=== PATIENT | female | born 1990 | race African-American/Black ===

== ENCOUNTER 2017-07-12 09:07 | Emergency (ER) | payer OTHER ==
[~2017-07-12] VITALS: Ht 162.6 cm; Wt 50.8 kg
[~2017-07-12 09:07] MED LIST: ACETAMINOPHEN-1 EAC1 ORAL; BACTRIM DS TAB1 EAC1 ORAL; CEPHALEXIN500 MG ORAL; IBUPROFEN600 MG ORAL; NKM; PENICILLIN V P500 MG PO; PREDNISONE20 MG ORAL
[2017-07-12 09:38] VITALS: BP 113/75
--- NOTE | 2017-07-12 09:47 | Emergency Room Report ---
History of Present Illness General Chief Complaint: Back Pain-No Injury Source: Patient Present Illness HPI The patient presents with right shoulder and upper back pain. This for several days. She's been lifting her child with right hand. There has been no fever, cough, nausea, vomiting, diarrhea, dysuria. She is due for her period in the next 2 days. She doesn't think she's . The pain is rated 7/10, constant and worse with movement, aching. No meds taken. No calf tenderness or edema. No dyspnea. She fractured her right collarbone year ago and believes that this might be related to that. She had nephrolithiasis and pyelonephritis in the past. This pain is different - higher up. Allergies: Coded Allergies: No Known Allergies (Unverified , 11/16/14) Patient History Past Medical History: see triage record, old chart reviewed Social History: Denies: smoking Social History Narrative here with son (Demarco) Last Menstrual Period: Jun 13 Now: No Reviewed Nursing Documentation: PMH: Agreed, PSxH: Agreed Nursing Documentation-PMH Past Medical History: No Stated History Review of Systems All Other Systems: negative except mentioned in HPI Physical Exam Vital Signs Date Time Temp Pulse Resp B/P (MAP) Pulse Ox O2 Delivery O2 Flow Rate FiO2 07/12/17 09:17 97.9 102 18 113/75 100 Room Air Sp02 EP Interpretation: reviewed, normal General Appearance: well appearing, no apparent distress, GCS 15 Head: normocephalic Eyes: bilateral eye normal inspection, bilateral eye PERRL, bilateral eye EOMI ENT: moist mucus membranes Neck: supple Respiratory: lungs clear, normal breath sounds, other - R upper back pain, muscle tenderness and some spasm R Cardiovascular #1: regular rate, rhythm Cardiovascular #2: 2+ radial (R) Gastrointestinal: normal inspection, normal bowel sounds, non tender, no mass, non-distended Genitourinary: no CVA tenderness Musculoskeletal: back normal - see chest, gait/station normal, normal range of motion Neurologic: alert, oriented x3, motor strength/tone normal, grossly normal Psychiatric: mood/affect normal Skin: normal inspection, warm/dry Medical Decision Making Diagnostic Impression: Primary Impression: Muscle spasm ER Course Patient presents with R upper back pain. Ddx; strain, spasm, UTI, pyelo, stone amongst others. Based on hx and VS, doubt PE. Evaluation with UA. Imaging not indicated. Prior CTs reviewed. Treatment with po Motrin. Labs significant for UA suggestive of menstruation (doubt UTI, pyelo or stone). There is some improvement, but still with pain. Discussed findings with patient. Still with pain and tramadol given. Patient advised of need for follow up. Patient stable for outpatient observation and treatment. Laboratory Tests Test 07/12/17 10:00 Urine Color Yellow Urine Appearance Slightly cloudy Urine pH 6.5 (4.5-8.0) Urine Specific [place] 1.015 (1.005-1.035) Urine Protein 1+ (NEGATIVE) H Urine Glucose (UA) Negative (NEGATIVE) Urine Ketones Negative (NEGATIVE) Urine Occult Blood 5+ (NEGATIVE) H Urine Nitrite Negative (NEGATIVE) Urine Bilirubin Negative (NEGATIVE) Urine Urobilinogen 1 MG/DL (0.0-1.0) H Urine Leukocyte Esterase 1+ (NEGATIVE) H Urine RBC Tntc /HPF (0 - 2) H Urine WBC 5-10 /HPF (0 - 2) H Urine Squamous Epithelial Cells Many /LPF (NONE/OCC) H Urine Bacteria Few /HPF (NONE) Urine Mucus Moderate /LPF (NONE/OCC) H Urine HCG, Qualitative Negative Last Vital Signs Date Time Temp Pulse Resp B/P (MAP) Pulse Ox O2 Delivery O2 Flow Rate FiO2 07/12/17 12:05 97.9 18 107/76 100 Room Air 07/12/17 09:17 102 Status: improved Disposition: HOME, SELF-CARE Condition: Improved Scripts Methocarbamol* (ROBAXIN*) 500 Mg Tablet 500 MG PO TID, #10 TAB 0 Refills Prov: Bryan Sanchez M.D. 07/12/17 Tramadol Hcl* (ULTRAM*) 50 Mg Tablet 50 MG ORAL Q6H Y for For Pain, #6 TAB 0 Refills Prov: Bryan Sanchez M.D. 07/12/17 Ibuprofen* (MOTRIN*) 600 Mg Tablet 600 MG ORAL Q6H Y for For Pain, #20 TAB Prov: Bryan Sanchez M.D. 07/12/17 Bryan Sanchez M.D. Jul 12, 2017 09:47
[2017-07-12 10:33] LABS: APPEARANCE,URINE SLIGHTLY CLOUDY; KETONES,URINE NEGATIVE (NEGATIVE); LEUKOCYTE ESTERASE ,URINE 1+ (NEGATIVE); NITRITE,URINE NEGATIVE (NEGATIVE); PH,URINE 6.5 (4.5-8.0); PROTEIN,URINE 1+ (NEGATIVE); UROBILINOGEN,URINE 1 MG/DL (0.0-1.0)
[2017-07-12 10:39] VITALS: BP 107/76
[2017-07-12 10:44] LABS: BACTERIA,URINE FEW /HPF; MUCUS,URINE MODERATE /LPF (NONE/OCC); RBC,URINE TNTC /HPF (0 - 2); SQUAMOUS EPITHELIAL CELL,UR MANY /LPF (NONE/OCC)
[2017-07-12] MEDS ORDERED: TRAMADOL HCL50 MG ORAL (11:40)
[2017-07-12] MEDS ORDERED: IBUPROFEN600 MG ORAL (11:40)
[2017-07-12] MEDS ORDERED: ROBAXIN500 MG PO (11:40)
[2017-07-12] MEDS ORDERED: traMADol 50mg tab ORAL ONE (11:45)
[2017-07-12 12:05] VITALS: BP 107/76
[2017-07-13] MEDS ORDERED: IBUPROFEN600 MG ORAL (02:14)
[2017-07-13] MEDS ORDERED: ACETAMINOPHEN-1 EAC1 ORAL (02:14)
== END 2017-07-12 12:06 | disposition home or self-care (01) ==
LOC: EMR 09:25
DX: M62.838 Other muscle spasm (principal); M25.511 Pain in right shoulder; M54.6 Pain in thoracic spine
CPT/HCPCS: 81003; 81025; 99284

== ENCOUNTER 2017-07-12 22:18 | Emergency (ER) | payer OTHER ==
[~2017-07-12] VITALS: Ht 162.6 cm; Wt 50.8 kg
[~2017-07-12 22:18] MED LIST changes: +ROBAXIN500 MG PO; +TRAMADOL HCL50 MG ORAL
[2017-07-12] MEDS ORDERED: Tubing IV Cassette IV ONE (22:45)
[2017-07-12] MEDS: Sodium Chloride 500ML 500 ML IV ONE (22:45)
[2017-07-12] MEDS: Ketorolac 30mg Inj IV ONE (22:46)
[2017-07-12 22:59] LABS: BASOPHILS % (AUTO) 0.9 % (0.0-2.0); EOSINOPHILS % (AUTO) 0.6 % (0.0-3.0); LYMPHOCYTES % (AUTO) 23.5 % (20.0-45.0); MEAN CORPUSCULAR HEMOGLOBIN 31.2 PG (27.0-31.0); MEAN CORPUSCULAR HGB CONC 32.9 G/DL (32.0-36.0); MEAN CORPUSCULAR VOLUME 95 FL (80-99); MEAN PLATELET VOLUME 10.3 FL (6.5-10.1); MONOCYTES % (AUTO) 9.1 % (1.0-10.0); NEUTROPHILS % (AUTO) 65.9 % (45.0-75.0); PLATELET COUNT 131 K/UL (150-450); RED BLOOD COUNT 3.97 M/UL (4.20-5.40); RED CELL DISTRIBUTION WIDTH 12.5 % (11.6-14.8)
[2017-07-12 23:10] LABS: ANION GAP 4 mmol/L (5-15); CALCIUM 8.9 MG/DL (8.5-10.1); CARBON DIOXIDE 31 MMOL/L (21-32); CHLORIDE 105 MMOL/L (98-107); GLOMERULAR FILTRATION RATE > 60 mL/min (>60); POTASSIUM 3.7 MMOL/L (3.5-5.1); SODIUM 139 MMOL/L (136-145)
[2017-07-12 23:34] LABS: ALANINE AMINOTRANSFERASE 14 U/L (12-78); ALBUMIN/GLOBULIN RATIO 0.9 (1.0-2.7); ASPARTATE AMINO TRANSFERASE 14 U/L (15-37); CKMB 0.9 NG/ML (0.0-3.6); LIPASE 84 U/L (73-393); TOTAL PROTEIN 7.7 G/DL (6.4-8.2)
[2017-07-12 23:43] VITALS: BP 111/62
--- NOTE | 2017-07-13 00:02 | Emergency Room Report ---
History of Present Illness General Chief Complaint: Pain Source: Patient Present Illness HPI Patient presents with complaints of right upper chest pain Right shoulder and back pain Patient also points to the right lower rib cage upper abdominal area Also complains of a pleuritic component to the pain Patient was here earlier this morning however as the pain persisted she was concerning came to the ER Denies any fevers or chills Denies any obvious lower abdominal pain however she does have upper quadrant discomfort as well Denies any dysuria frequency Pain is 10 out of 10 Initially this morning there was a note with possible relationship to lifting her child and the onset of the pain however at this time the patient denies that Allergies: Coded Allergies: No Known Allergies (Unverified , 11/16/14) Patient History Past Medical History: see triage record Pertinent Family History: none Last Menstrual Period: Jun Reviewed Nursing Documentation: PMH: Agreed, PSxH: Agreed Nursing Documentation-PM Past Medical History: No Stated History Review of Systems All Other Systems: negative except mentioned in HPI Physical Exam Vital Signs Date Time Temp Pulse Resp B/P (MAP) Pulse Ox O2 Delivery O2 Flow Rate FiO2 07/12/17 22:20 97.9 88 16 127/83 100 Room Air Sp02 EP Interpretation: reviewed, normal General Appearance: no apparent distress Head: normocephalic, atraumatic Eyes: bilateral eye PERRL, bilateral eye EOMI ENT: hearing grossly normal, normal pharynx, TMs + canals normal, uvula midline Neck: full range of motion, supple, no meningismus, no bony tend Respiratory: lungs clear, normal breath sounds, no rhonchi, no respiratory distress, no retraction, no accessory muscle use Cardiovascular #1: normal peripheral pulses, regular rate, rhythm, no edema, no gallop, no JVD, no murmur, other - Patient does have some reproducible component to the right mid flank and facility area on palpation over the ribs Gastrointestinal: normal bowel sounds, non tender, soft, no mass, no organomegaly, non-distended, no guarding, no hernia, no pulsatile mass, no rebound Genitourinary: no CVA tenderness Musculoskeletal: normal inspection Neurologic: oriented x3, responsive, pepper cutter III-XII nml as tested, motor strength/ tone normal, sensory intact Psychiatric: mood/affect normal Skin: normal color, no rash, warm/dry, palpation normal Lymphatic: normal inspection, no adenopathy Medical Decision Making Diagnostic Impression: Primary Impression: Ovarian cyst Additional Impression: Pleurisy ER Course With the patient's history and examination, multiple differentials considered, including but not limited to , ectopic , ovarian torsion, gastritis, cholecystitis, pancreatitis, appendicitis However given the patient's description of some pleuritic discomfort and upper chest area d-dimer was obtained which was also elevated Patient's CT chest is not reveal any acute pathology The abdomen pelvis does reveal what appears to be a likely ruptured right-sided ovarian cyst Patient does not have any pelvic discomfort at this time or signs leading to ovarian torsion patient has done significantly better and rested throughout her stay at this time further hydrated and will require close outpatient followup Labs Test 07/12/17 22:45 07/12/17 23:15 White Blood Count 9.0 K/UL (4.8-10.8) Red Blood Count 3.97 M/UL (4.20-5.40) Hemoglobin 12.4 G/DL (12.0-16.0) Hematocrit 37.7 % (37.0-47.0) Mean Corpuscular Volume 95 FL (80-99) Mean Corpuscular Hemoglobin 31.2 PG (27.0-31.0) Mean Corpuscular Hemoglobin Concent 32.9 G/DL (32.0-36.0) Red Cell Distribution Width 12.5 % (11.6-14.8) Platelet Count 131 K/UL (150-450) Mean Platelet Volume 10.3 FL (6.5-10.1) Neutrophils (%) (Auto) 65.9 % (45.0-75.0) Lymphocytes (%) (Auto) 23.5 % (20.0-45.0) Monocytes (%) (Auto) 9.1 % (1.0-10.0) Eosinophils (%) (Auto) 0.6 % (0.0-3.0) Basophils (%) (Auto) 0.9 % (0.0-2.0) D-Dimer 0.88 mg/L FEU (0.00-0.49) Sodium Level 139 MMOL/L (136-145) Potassium Level 3.7 MMOL/L (3.5-5.1) Chloride Level 105 MMOL/L (98-107) Carbon Dioxide Level 31 MMOL/L (21-32) Anion Gap 4 mmol/L (5-15) Blood Urea Nitrogen 13 mg/dL (7-18) Creatinine 1.0 MG/DL (0.55-1.30) Estimat Glomerular Filtration Rate > 60 mL/min (>60) Glucose Level 87 MG/DL (74-106) Calcium Level 8.9 MG/DL (8.5-10.1) Total Bilirubin 0.4 MG/DL (0.2-1.0) Aspartate Amino Transf (AST/SGOT) 14 U/L (15-37) Alanine Aminotransferase (ALT/SGPT) 14 U/L (12-78) Alkaline Phosphatase 40 U/L (46-116) Total Creatine Kinase 63 U/L (26-308) Creatine Kinase MB 0.9 NG/ML (0.0-3.6) Creatine Kinase MB Relative Index 1.4 Total Protein 7.7 G/DL (6.4-8.2) Albumin 3.6 G/DL (3.4-5.0) Globulin 4.1 g/dL Albumin/Globulin Ratio 0.9 (1.0-2.7) Lipase 84 U/L (73-393) Urine Opiates Screen Negative (NEGATIVE) Urine Barbiturates Screen Negative (NEGATIVE) Phencyclidine (PCP) Screen Negative (NEGATIVE) Urine Amphetamines Screen Negative (NEGATIVE) Urine Benzodiazepines Screen Negative (NEGATIVE) Urine Cocaine Screen Negative (NEGATIVE) Urine Marijuana (THC) Screen Positive (NEGATIVE) CT/MRI/US Diagnostic Results CT/MRI/US Diagnostic Results : Impression CT chest no acute disease CT abdomen pelvis: Appearance of ruptured right-sided ovarian cyst Last Vital Signs Date Time Temp Pulse Resp B/P (MAP) Pulse Ox O2 Delivery O2 Flow Rate FiO2 07/12/17 23:43 97.4 67 12 111/62 100 Room Air Status: improved Disposition: HOME, SELF-CARE Condition: Improved Scripts Acetaminophen With Codeine (T#3) (TYLENOL #3 TAB*) Y Tab 1 TAB ORAL Q8H Y for For Pain, #12 TAB Prov: SUDHAKAR STOVALL.OAlma 07/13/17 Ibuprofen* (MOTRIN*) 600 Mg Tablet 600 MG ORAL Q8H Y for For Pain, #20 TAB 0 Refills Prov: SUDHAKAR STOVALL D.O. 07/13/17 Referrals: [facility],REFERRING (PCP) Additional Instructions: Patient is provided with the discharge instructions notified to follow up with primary doctor in the next 2-3 days otherwise return to the er with any worsening symptoms. Please note that this report is being documented using [employer] technology. This can lead to erroneous entry secondary to incorrect interpretation by the dictating instrument. SUDHAKAR STOVALL D.O. Jul 13, 2017 00:02
[2017-07-13 01:54] VITALS: BP 101/67
[2017-07-13] MEDS ORDERED: IBUPROFEN600 MG ORAL (02:14)
[2017-07-13] MEDS ORDERED: ACETAMINOPHEN-1 EAC1 ORAL (02:14)
[2017-07-13 02:57] VITALS: BP 101/67
--- NOTE | 2017-07-13 10:35 | Diagnostic Imaging Report ---
Indication: Chest pain Technique: One view of the chest Comparison: none Findings: Lungs and pleural spaces are clear. Heart size is normal. Impression: No acute process
--- NOTE | 2017-07-13 11:02 | Diagnostic Imaging Report ---
INDICATION: Right-sided pain x3 days TECHNIQUE: IV administration nonionic contrast. Arterial phase spiral acquisitions obtained through the chest, abdomen, and pelvis. Multiplanar since 3-D reconstructions were generated. Total dose length product 653 mGycm. CTDIvol(s) 8,8,9 mGy. Radiation dose was minimized using automated exposure control COMPARISON: Noncontrast abdomen and pelvis CT dated 06/06/2016. No comparison chest studies FINDINGS Chest: No evidence of thoracic aortic aneurysm or dissection. Normal classic branching anatomy of the great neck vessels. Exam protocol was not tailored for exclusion of pulmonary embolus, but the pulmonary arteries are well opacified and no findings to suggest acute pulmonary embolus are evident. Normal caliber pulmonary arteries. Normal heart size. The lungs are clear except for minimal posterior dependent atelectatic changes on the right. No mediastinal or hilar mass or adenopathy. The included portions of the thyroid are unremarkable. Normal esophagus. No axillary or chest wall mass or adenopathy. The bones are unremarkable. Abdomen and pelvis: Normal caliber abdominal aorta and iliac vessels. No evidence of dissection. Normal caliber celiac artery and proximal branches, superior mesenteric artery and proximal branches, inferior mesenteric artery. Single patent nonstenotic bilateral renal arteries. The appendix is normal. No evidence of diverticulosis or diverticulitis. No small bowel distention. There is equivocal trace free pelvic fluid. No free or loculated intraperitoneal air is evident. The liver, gallbladder, bile ducts, pancreas, spleen, adrenals, are all unremarkable. Previously demonstrated 2 mm left interpolar region calyceal calculus is again demonstrated. Previously demonstrated right lower pole calyceal calculus is again demonstrated. No focal parenchymal abnormality demonstrated. No ureteral calculi or hydronephrosis. There is a suggestion of a collapsed cyst in the right ovary. No pelvic mass or adenopathy. No retroperitoneal or mesenteric mass or adenopathy. The bones are unremarkable. IMPRESSION: No acute abnormality Possible small collapsed cyst right ovary with trace free pelvic fluid which is likely physiologic Nonobstructive bilateral intrarenal calculi, also previously reported Minimal basilar pulmonary parenchymal atelectasis This agrees with the preliminary interpretation provided overnight by [facility] teleradiology service. The CT scanner at [facility] is accredited by the [employer] and the scans are performed using protocols designed to limit radiation exposure to as low as reasonably achievable to attain images of sufficient resolution adequate for diagnostic evaluation.
--- NOTE | 2017-07-15 14:40 | Cardiology Report ---
APPROVED REPORT EKG Measurement Heart [id number] Normal sinus rhythm Possible Left atrial enlargement Borderline ECG
== END 2017-07-13 02:59 | disposition home or self-care (01) ==
LOC: EMR 22:37
DX: N83.201 Unspecified ovarian cyst, right side (principal); R09.1 Pleurisy; N20.0 Calculus of kidney
CPT/HCPCS: 36415; 71010; 71275; 74174; 80053; 80307; 82550; 82553; 83690; 85025; 85379; 93005; 96361; 96374; 99284; J1885; J7040; Q9967

== ENCOUNTER 2017-07-18 19:07 | Emergency (ER) | payer OTHER ==
[~2017-07-18] VITALS: Ht 162.6 cm; Wt 53.1 kg
[2017-07-18 19:15] VITALS: BP 130/76
[2017-07-18] MEDS ORDERED: Morphine Sulfate 4mg/ml Inj IVP ONE (19:30)
[2017-07-18 20:03] LABS: APPEARANCE,URINE CLOUDY; KETONES,URINE NEGATIVE (NEGATIVE); LEUKOCYTE ESTERASE ,URINE 1+ (NEGATIVE); NITRITE,URINE NEGATIVE (NEGATIVE); PH,URINE 8 (4.5-8.0); PROTEIN,URINE 1+ (NEGATIVE); UROBILINOGEN,URINE 4 MG/DL (0.0-1.0)
[2017-07-18 20:16] LABS: BACTERIA,URINE FEW /HPF; RBC,URINE TNTC /HPF (0 - 2); SQUAMOUS EPITHELIAL CELL,UR MANY /LPF (NONE/OCC)
[2017-07-18 20:17] LABS: BASOPHILS % (AUTO) 1.1 % (0.0-2.0); EOSINOPHILS % (AUTO) 0.9 % (0.0-3.0); LYMPHOCYTES % (AUTO) 30.8 % (20.0-45.0); MEAN CORPUSCULAR HEMOGLOBIN 29.7 PG (27.0-31.0); MEAN CORPUSCULAR HGB CONC 31.5 G/DL (32.0-36.0); MEAN CORPUSCULAR VOLUME 94 FL (80-99); MEAN PLATELET VOLUME 8.2 FL (6.5-10.1); MONOCYTES % (AUTO) 6.7 % (1.0-10.0); NEUTROPHILS % (AUTO) 60.5 % (45.0-75.0); PLATELET COUNT 142 K/UL (150-450); RED BLOOD COUNT 3.61 M/UL (4.20-5.40); WHITE BLOOD COUNT 6.2 K/UL (4.8-10.8)
[2017-07-18 20:20] LABS: ANION GAP 4 mmol/L (5-15); CALCIUM 9.1 MG/DL (8.5-10.1); CARBON DIOXIDE 31 MMOL/L (21-32); CHLORIDE 108 MMOL/L (98-107); GLOMERULAR FILTRATION RATE > 60 mL/min (>60); POTASSIUM 3.5 MMOL/L (3.5-5.1); SODIUM 143 MMOL/L (136-145)
[2017-07-18 20:24] LABS: ALANINE AMINOTRANSFERASE 20 U/L (12-78); ALBUMIN/GLOBULIN RATIO 0.9 (1.0-2.7); ASPARTATE AMINO TRANSFERASE 18 U/L (15-37); LIPASE 91 U/L (73-393); TOTAL PROTEIN 7.2 G/DL (6.4-8.2)
[2017-07-18 21:15] VITALS: BP 125/69
[2017-07-18] MEDS ORDERED: NORCO 5-325 TA1 EACH ORAL (21:55)
[2017-07-18] MEDS ORDERED: IBUPROFEN600 MG ORAL (21:55)
[2017-07-18] MEDS ORDERED: Ketorolac 30mg Inj IV ONE (22:00)
[2017-07-18 22:10] VITALS: BP 122/71
--- NOTE | 2017-07-18 22:12 | Emergency Room Report ---
History of Present Illness General Chief Complaint: Abdominal Pain Source: Patient Present Illness HPI 27-year-old female presents ED complaining of abdominal pain. Started approximately 6 days ago. Started on the first day of her menstrual cycle. Patient was seen in ER on 07/12. Had CT which showed ovarian cyst. Was discharged on pain medications. States that the pain has persisted. 10 out of 10, sharp, nonradiating. Notes vaginal bleeding which is heavier than usual for the last 2 months. No other aggravating relieving factors. Denies any other associated symptoms Allergies: Coded Allergies: No Known Allergies (Unverified , 11/16/14) Patient History Past Medical History: none Past Surgical History: none Pertinent Family History: none Social History: Denies: smoking, alcohol use, drug use Last Menstrual Period: 07/12/17 Now: No : 3 Para: 1 Immunizations: UTD Reviewed Nursing Documentation: PMH: Agreed, PSxH: Agreed Nursing Documentation-PMH Past Medical History: No Stated History Review of Systems All Other Systems: negative except mentioned in HPI Physical Exam Vital Signs Date Time Temp Pulse Resp B/P (MAP) Pulse Ox O2 Delivery O2 Flow Rate FiO2 07/18/17 19:10 98.2 75 18 130/76 100 Room Air Sp02 EP Interpretation: reviewed, normal General Appearance: alert, GCS 15, non-toxic, moderate distress, thin Head: normocephalic, atraumatic Eyes: bilateral eye normal inspection, bilateral eye PERRL ENT: hearing grossly normal, normal pharynx, no angioedema, normal voice Neck: full range of motion, supple/symm/no masses Respiratory: chest non-tender, lungs clear, normal breath sounds, speaking full sentences Cardiovascular #1: regular rate, rhythm, no edema Cardiovascular #2: 2+ carotid (R), 2+ carotid (L), 2+ radial (R), 2+ radial (L) , 2+ dorsalis pedis (R), 2+ dorsalis pedis (L) Gastrointestinal: normal bowel sounds, soft, non-distended, no guarding, no rebound, tenderness Rectal: deferred Genitourinary: normal inspection, no CVA tenderness Musculoskeletal: back normal, gait/station normal, normal range of motion, non- tender Neurologic: alert, oriented x3, responsive, motor strength/tone normal, sensory intact, speech normal Psychiatric: judgement/insight normal, memory normal, mood/affect normal, no suicidal/homicidal ideation Reflexes: 3+ bicep (R), 3+ bicep (L), 3+ tricep (R), 3+ tricep (L), 3+ knee (R) , 3+ knee (L) Skin: normal color, no rash, warm/dry, well hydrated Lymphatic: no adenopathy Medical Decision Making Diagnostic Impression: Primary Impression: Fibroids Qualified Codes: D25.9 - Leiomyoma of uterus, unspecified ER Course Hospital Course 27-year-old female presents to ED complaining of lower abdominal pain Differential diagnoses include: gastrits, gastroenterits, ectopic , ovarian torsion/cyst, UTI Clinical course Patient placed on stretcher in ED. After initial history and physical I ordered labs, IV fluids and pain meds, abd and pelvic ultrasound. Labs-no leukocytosis, electrolytes okay, beta hCG negative Abdominal ultrasound unremarkable Pelvic ultrasound- fibroids Upon reassessment patient states she feels better. Discussed findings with patient he recommended followup with [facility] Diagnosis - fibroids Stable and discharged to home with Rx Mauricio Bradford. Followup with PMD/[facility]. Return to ED if symptoms recur or worsen Labs Test 07/18/17 19:54 White Blood Count 6.2 K/UL (4.8-10.8) Red Blood Count 3.61 M/UL (4.20-5.40) Hemoglobin 10.7 G/DL (12.0-16.0) Hematocrit 34.0 % (37.0-47.0) Mean Corpuscular Volume 94 FL (80-99) Mean Corpuscular Hemoglobin 29.7 PG (27.0-31.0) Mean Corpuscular Hemoglobin Concent 31.5 G/DL (32.0-36.0) Red Cell Distribution Width 12.0 % (11.6-14.8) Platelet Count 142 K/UL (150-450) Mean Platelet Volume 8.2 FL (6.5-10.1) Neutrophils (%) (Auto) 60.5 % (45.0-75.0) Lymphocytes (%) (Auto) 30.8 % (20.0-45.0) Monocytes (%) (Auto) 6.7 % (1.0-10.0) Eosinophils (%) (Auto) 0.9 % (0.0-3.0) Basophils (%) (Auto) 1.1 % (0.0-2.0) Urine Color Pale yellow Urine Appearance Cloudy Urine pH 8 (4.5-8.0) Urine Specific [place] 1.015 (1.005-1.035) Urine Protein 1+ (NEGATIVE) Urine Glucose (UA) Negative (NEGATIVE) Urine Ketones Negative (NEGATIVE) Urine Occult Blood 5+ (NEGATIVE) Urine Nitrite Negative (NEGATIVE) Urine Bilirubin Negative (NEGATIVE) Urine Urobilinogen 4 MG/DL (0.0-1.0) Urine Leukocyte Esterase 1+ (NEGATIVE) Urine RBC Tntc /HPF (0 - 2) Urine WBC 5-10 /HPF (0 - 2) Urine Squamous Epithelial Cells Many /LPF (NONE/OCC) Urine Bacteria Few /HPF (NONE) Urine HCG, Qualitative Negative Sodium Level 143 MMOL/L (136-145) Potassium Level 3.5 MMOL/L (3.5-5.1) Chloride Level 108 MMOL/L (98-107) Carbon Dioxide Level 31 MMOL/L (21-32) Anion Gap 4 mmol/L (5-15) Blood Urea Nitrogen 12 mg/dL (7-18) Creatinine 1.0 MG/DL (0.55-1.30) Estimat Glomerular Filtration Rate > 60 mL/min (>60) Glucose Level 85 MG/DL (74-106) Calcium Level 9.1 MG/DL (8.5-10.1) Total Bilirubin 0.2 MG/DL (0.2-1.0) Aspartate Amino Transf (AST/SGOT) 18 U/L (15-37) Alanine Aminotransferase (ALT/SGPT) 20 U/L (12-78) Alkaline Phosphatase 41 U/L (46-116) Total Protein 7.2 G/DL (6.4-8.2) Albumin 3.4 G/DL (3.4-5.0) Globulin 3.8 g/dL Albumin/Globulin Ratio 0.9 (1.0-2.7) Lipase 91 U/L (73-393) CT/MRI/US Diagnostic Results CT/MRI/US Diagnostic Results #1: Imaging Test Ordered: ABD US Impression no acute process CT/MRI/US Diagnostic Results #2: Imaging Test Ordered: Pelvic US Impression uterine fibroids Last Vital Signs Date Time Temp Pulse Resp B/P (MAP) Pulse Ox O2 Delivery O2 Flow Rate FiO2 07/18/17 19:15 98.2 75 18 130/76 100 Room Air Status: improved Disposition: HOME, SELF-CARE Condition: Stable Scripts Hydrocodone Bit/Acetaminophen 5-325* (NORCO 5-325*) 1 Each Tablet 1 TAB ORAL Q6H Y for For Pain, #10 TAB 0 Refills Prov: FCO ZAYAS M.D. 07/18/17 Ibuprofen* (MOTRIN*) 600 Mg Tablet 600 MG ORAL Q8H Y for For Pain, #30 TAB 0 Refills Prov: FCO ZAYAS M.D. 07/18/17 Referrals: TARYN MCNAIR Patient Instructions: Abdominal or Pelvic Ultrasound, [id number] FCO ZAYAS M.D. Jul 18, 2017 22:12
--- NOTE | 2017-07-19 11:03 | Diagnostic Imaging Report ---
Indication: Abdominal pain, negative urine test Technique: Transabdominal and transvaginal images Comparison: Reference made to CT scan dated 07/13/2017 Findings: Uterus measures 8.8 cm length by 4.8 cm AP. Endometrium measures 3 mm thick. There are subtle upper fundal fibroids measuring up to 2.6 cm in diameter. The right ovary measures 2.5 cm length. The left ovary measures 2.7 cm in length. No adnexal mass demonstrated. A 4 mm cyst is seen in the cervix, probably a small nabothian cyst. No free cul-de-sac fluid Impression: Probable small fibroids No acute process otherwise
--- NOTE | 2017-07-19 11:07 | Diagnostic Imaging Report ---
Indication: Reason For Exam: ABD PAIN Technique: Roy-scale and duplex images of the upper abdomen were obtained Comparison: Reference made to abdomen and pelvis CT dated 07/13/2017 Findings: Gallbladder is unremarkable, without stones, wall thickening, nor pericholecystic fluid. Sonographic Alegria's sign is negative. Common bile duct measures 3 mm in diameter. No intrahepatic biliary ductal dilatation. Liver demonstrates normal echogenicity, no focal abnormality. Portal vein and hepatic veins are patent. Pancreas is unremarkable. Spleen is unremarkable. Left kidney measures 10 cm in length. Right kidney measures 11.5 cm length. Both kidneys demonstrate normal echogenicity. There is no hydronephrosis. Small bilateral intrarenal calculi are demonstrated. There are questionable small bilateral renal cysts. Non-aneurysmal abdominal aorta . Impression: Negative for gallstones or dilated ducts Nonobstructive bilateral intrarenal calculi, also previously reported on earlier CT scan Questionable small renal cysts, occult on CT if real
== END 2017-07-18 22:10 | disposition home or self-care (01) ==
LOC: EMR 19:20
DX: D25.9 Leiomyoma of uterus, unspecified (principal)
CPT/HCPCS: 36415; 76700; 76856; 80053; 81003; 81025; 83690; 85025; 96361; 96374; 96375; 99284; J1885; J2270; J2405

== ENCOUNTER 2018-02-09 11:20 | Emergency (ER) | payer OTHER ==
[~2018-02-09] VITALS: Ht 162.6 cm; Wt 54.4 kg
[~2018-02-09 11:20] MED LIST changes: +NORCO 5-325 TA1 EACH ORAL
[2018-02-09] MEDS ORDERED: Sodium Chloride 500ML 500 ML IV ONE (11:46)
[2018-02-09] MEDS ORDERED: Morphine Sulfate 4mg/ml Inj IVP ONE (12:00)
[2018-02-09 12:19] VITALS: BP 123/77
[2018-02-09 12:35] LABS: ANION GAP 7 mmol/L (5-15); BLOOD UREA NITROGEN 13 mg/dL (7-18); CALCIUM 9.2 MG/DL (8.5-10.1); CARBON DIOXIDE 29 MMOL/L (21-32); CHLORIDE 103 MMOL/L (98-107); CREATININE 0.9 MG/DL (0.55-1.30); POTASSIUM 3.6 MMOL/L (3.5-5.1); SODIUM 139 MMOL/L (136-145)
[2018-02-09 12:39] LABS: BASOPHILS % (AUTO) 0.8 % (0.0-2.0); EOSINOPHILS % (AUTO) 1.3 % (0.0-3.0); HEMATOCRIT 37.1 % (37.0-47.0); HEMOGLOBIN 12.2 G/DL (12.0-16.0); LYMPHOCYTES % (AUTO) 29.4 % (20.0-45.0); MEAN CORPUSCULAR VOLUME 91 FL (80-99); MONOCYTES % (AUTO) 5.5 % (1.0-10.0); PLATELET COUNT 156 K/UL (150-450); RED BLOOD COUNT 4.09 M/UL (4.20-5.40); RED CELL DISTRIBUTION WIDTH 11.2 % (11.6-14.8); WHITE BLOOD COUNT 5.7 K/UL (4.8-10.8)
[2018-02-09 12:42] LABS: ALANINE AMINOTRANSFERASE 17 U/L (12-78); ALBUMIN 3.5 G/DL (3.4-5.0); ALBUMIN/GLOBULIN RATIO 0.8 (1.0-2.7); ALKALINE PHOSPHATASE 43 U/L (46-116); ASPARTATE AMINO TRANSFERASE 14 U/L (15-37); BILIRUBIN,TOTAL 0.6 MG/DL (0.2-1.0)
[2018-02-09 12:53] LABS: APPEARANCE,URINE SLIGHTLY CLOUDY; BILIRUBIN, URINE 1+ (NEGATIVE); GLUCOSE, URINE (UA) NEGATIVE (NEGATIVE); KETONES,URINE NEGATIVE (NEGATIVE); LEUKOCYTE ESTERASE ,URINE 3+ (NEGATIVE); NITRITE,URINE NEGATIVE (NEGATIVE); PH,URINE 6 (4.5-8.0); PROTEIN,URINE 1+ (NEGATIVE); UROBILINOGEN,URINE 1 MG/DL (0.0-1.0)
[2018-02-09 13:07] LABS: COLOR,URINE YELLOW
[2018-02-09] MEDS ORDERED: Ketorolac 30mg Inj IV ONE (13:15)
[2018-02-09] MEDS ORDERED: cefTRIAXone 1 GM in NS 55 ML IVPB ONE (13:15)
[2018-02-09 13:48] VITALS: BP 106/58
--- NOTE | 2018-02-09 14:15 | Diagnostic Imaging Report ---
EXAM: CT Abdomen and Pelvis Without Intravenous Contrast CLINICAL HISTORY: FLANK TECHNIQUE: Axial computed tomography images of the abdomen and pelvis without intravenous contrast. CTDI is 11.66 mGy and DLP is 536 mGy-cm. One or more of the following dose reduction techniques were used: automated exposure control, adjustment of the mA and/or kV according to patient size, use of iterative reconstruction technique. COMPARISON: CT abdomen and pelvis 06/06/16 FINDINGS: Lung bases: Unremarkable. No mass. No consolidation. ABDOMEN: Liver: Prominent left lobe of the liver. Gallbladder and bile ducts: Unremarkable. No calcified stones. No ductal dilation. Pancreas: Unremarkable. No ductal dilation. Spleen: Unremarkable. No splenomegaly. Adrenals: Unremarkable. No mass. Kidneys and ureters: 4 mm nonobstructive right renal stone inferior pole calyx. No ureteral or bladder stone. No renal obstruction. Stomach and bowel: Mild fluid-filled distal small bowel loops in lower abdomen. Query mild enteritis or ileus. No obstruction. PELVIS: Appendix: No findings to suggest acute appendicitis. Bladder: Unremarkable. No stones. Reproductive: Unremarkable as visualized. ABDOMEN and PELVIS: Intraperitoneal space: Small to moderate free fluid in the pelvis, probably physiologic. No free air. Bones/joints: No acute fracture. No dislocation. Soft tissues: Unremarkable. Vasculature: Unremarkable. No abdominal aortic aneurysm. Lymph nodes: Small to borderline mesenteric and inguinal lymph nodes. IMPRESSION: 1. 4 mm nonobstructive right renal stone inferior pole calyx. No obstructive uropathy. 2. Small to moderate free fluid in the pelvis, probably physiologic. 3. Mild fluid-filled distal small bowel loops in lower abdomen. Query mild enteritis or ileus. No bowel obstruction.
[2018-02-09] MEDS ORDERED: TAMSULOSIN HCL0.4 MG ORAL (14:29)
[2018-02-09] MEDS ORDERED: IBUPROFEN600 MG ORAL (14:29)
[2018-02-09] MEDS ORDERED: NORCO 5-325 TA1 EACH ORAL (14:29)
--- NOTE | 2018-02-09 14:37 | Emergency Room Report ---
History of Present Illness General Chief Complaint: Abdominal Pain Source: Patient (Noman Bragg MD) Present Illness HPI 27-year-old female presents ED for evaluation. Patient coming with left flank pain for 4 days. Pain is sharp, 7 out of 10, radiating towards the groin. History of kidney stone. Denies fevers or chills. Denies chest pain or shortness of breath. Denies nausea or vomiting. No other aggravating relieving factors. Denies any other associated symptoms (Noman Bragg MD) Allergies: Coded Allergies: No Known Allergies (Unverified , 11/16/14) Patient History Past Medical History: none Past Surgical History: none Pertinent Family History: none Social History: Denies: smoking, alcohol use, drug use Last Menstrual Period: 02/07/18 Now: No Immunizations: UTD Reviewed Nursing Documentation: PMH: Agreed; PSxH: Agreed (Noman Bragg MD) Review of Systems All Other Systems: negative except mentioned in HPI (Noman Bragg MD) Physical Exam Vital Signs Date Time Temp Pulse Resp B/P (MAP) Pulse Ox O2 Delivery O2 Flow Rate FiO2 02/09/18 11:26 98.3 108 18 119/75 97 Room Air 98.2 Sp02 EP Interpretation: reviewed, normal General Appearance: no apparent distress, alert, GCS 15, non-toxic Head: normocephalic, atraumatic Eyes: bilateral eye normal inspection, bilateral eye PERRL ENT: hearing grossly normal, normal pharynx, no angioedema, normal voice Neck: full range of motion, supple/symm/no masses Respiratory: chest non-tender, lungs clear, normal breath sounds, speaking full sentences Cardiovascular #1: regular rate, rhythm, no edema Cardiovascular #2: 2+ carotid (R), 2+ carotid (L), 2+ radial (R), 2+ radial (L) , 2+ dorsalis pedis (R), 2+ dorsalis pedis (L) Gastrointestinal: normal bowel sounds, non tender, soft, non-distended, no guarding, no rebound Rectal: deferred Genitourinary: normal inspection, CVA tenderness (L) Musculoskeletal: back normal, gait/station normal, normal range of motion, non- tender Neurologic: alert, oriented x3, responsive, motor strength/tone normal, sensory intact, speech normal Psychiatric: judgement/insight normal, memory normal, mood/affect normal, no suicidal/homicidal ideation Reflexes: 3+ bicep (R), 3+ bicep (L), 3+ tricep (R), 3+ tricep (L), 3+ knee (R) , 3+ knee (L) Skin: normal color, no rash, warm/dry, well hydrated Lymphatic: no adenopathy (Noman Bragg MD) Medical Decision Making Diagnostic Impression: Primary Impression: Kidney stone Additional Impression: UTI (urinary tract infection) Labs Test 02/09/18 12:07 02/09/18 12:30 White Blood Count 5.7 K/UL (4.8-10.8) Red Blood Count 4.09 M/UL (4.20-5.40) Hemoglobin 12.2 G/DL (12.0-16.0) Hematocrit 37.1 % (37.0-47.0) Mean Corpuscular Volume 91 FL (80-99) Mean Corpuscular Hemoglobin 29.9 PG (27.0-31.0) Mean Corpuscular Hemoglobin Concent 32.9 G/DL (32.0-36.0) Red Cell Distribution Width 11.2 % (11.6-14.8) Platelet Count 156 K/UL (150-450) Mean Platelet Volume 9.6 FL (6.5-10.1) Neutrophils (%) (Auto) 63.0 % (45.0-75.0) Lymphocytes (%) (Auto) 29.4 % (20.0-45.0) Monocytes (%) (Auto) 5.5 % (1.0-10.0) Eosinophils (%) (Auto) 1.3 % (0.0-3.0) Basophils (%) (Auto) 0.8 % (0.0-2.0) Sodium Level 139 MMOL/L (136-145) Potassium Level 3.6 MMOL/L (3.5-5.1) Chloride Level 103 MMOL/L (98-107) Carbon Dioxide Level 29 MMOL/L (21-32) Anion Gap 7 mmol/L (5-15) Blood Urea Nitrogen 13 mg/dL (7-18) Creatinine 0.9 MG/DL (0.55-1.30) Estimat Glomerular Filtration Rate > 60 mL/min (>60) Glucose Level 81 MG/DL (74-106) Calcium Level 9.2 MG/DL (8.5-10.1) Total Bilirubin 0.6 MG/DL (0.2-1.0) Aspartate Amino Transf (AST/SGOT) 14 U/L (15-37) Alanine Aminotransferase (ALT/SGPT) 17 U/L (12-78) Alkaline Phosphatase 43 U/L (46-116) Total Protein 7.7 G/DL (6.4-8.2) Albumin 3.5 G/DL (3.4-5.0) Globulin 4.2 g/dL Albumin/Globulin Ratio 0.8 (1.0-2.7) Lipase 72 U/L (73-393) Human Chorionic Gonadotropin, Qual Negative Urine Color Yellow Urine Appearance Slightly cloudy Urine pH 6 (4.5-8.0) Urine Specific [place] 1.020 (1.005-1.035) Urine Protein 1+ (NEGATIVE) Urine Glucose (UA) Negative (NEGATIVE) Urine Ketones Negative (NEGATIVE) Urine Occult Blood 1+ (NEGATIVE) Urine Nitrite Negative (NEGATIVE) Urine Bilirubin 1+ (NEGATIVE) Urine Ictotest Negative Urine Urobilinogen 1 MG/DL (0.0-1.0) Urine Leukocyte Esterase 3+ (NEGATIVE) Urine RBC 10-15 /HPF (0 - 2) Urine WBC 20-30 /HPF (0 - 2) Urine Squamous Epithelial Cells Many /LPF (NONE/OCC) Urine Amorphous Sediment Moderate /LPF (NONE) Urine Bacteria Many /HPF (NONE) Urine HCG, Qualitative Negative (NEGATIVE) (Noman Bragg MD) ER Course Second much lint cleaner UA with few epi cells still has 5-10 WBC and Keflex added to meds. Explained to patient. (Gil Sinha M.D.) CT/MRI/US Diagnostic Results CT/MRI/US Diagnostic Results : Imaging Test Ordered: CT A/P Impression 4 mm nonobstructive right renal stone inferior pole calyx. No ureteral or bladder stone. No renal obstruction (Noman Bragg MD) Last Vital Signs Date Time Temp Pulse Resp B/P (MAP) Pulse Ox O2 Delivery O2 Flow Rate FiO2 02/09/18 13:48 71 18 106/58 100 Room Air 02/09/18 13:36 98.0 Status: improved (Noman Bragg MD) Status: improved (Gil Sinha M.D.) Disposition: HOME, SELF-CARE Condition: Stable Scripts Cephalexin* (KEFLEX*) 500 Mg Capsule 500 MG ORAL EVERY 12 HOURS, #14 CAP 0 Refills Prov: Gil Sinha M.D. 02/09/18 Tamsulosin Hcl (TAMSULOSIN HCL*) 0.4 Mg Cap.er.24h 0.4 MG ORAL BEDTIME, #10 CAP Prov: Noman Bragg MD 02/09/18 Hydrocodone Bit/Acetaminophen 5-325* (NORCO 5-325*) 1 Each Tablet 1 TAB ORAL Q6H PRN for For Pain, #10 TAB 0 Refills Prov: Noman Bragg MD 02/09/18 Ibuprofen* (MOTRIN*) 600 Mg Tablet 600 MG ORAL Q8H PRN for For Pain, #30 TAB 0 Refills Prov: Noman Bragg MD 02/09/18 Patient Instructions: Kidney Stones Noman Bragg MD Feb 09, 2018 14:37 Gil Sinha M.D. Feb 09, 2018 15:18
[2018-02-09 14:49] LABS: APPEARANCE,URINE CLEAR; BILIRUBIN, URINE NEGATIVE (NEGATIVE); COLOR,URINE PALE YELLOW; GLUCOSE, URINE (UA) NEGATIVE (NEGATIVE); KETONES,URINE NEGATIVE (NEGATIVE); LEUKOCYTE ESTERASE ,URINE 2+ (NEGATIVE); NITRITE,URINE NEGATIVE (NEGATIVE); PH,URINE 6 (4.5-8.0); PROTEIN,URINE NEGATIVE (NEGATIVE); UROBILINOGEN,URINE NORMAL MG/DL (0.0-1.0)
[2018-02-09] MEDS ORDERED: CEPHALEXIN500 MG ORAL (15:16)
[2018-02-09 15:30] VITALS: BP 107/89
== END 2018-02-09 15:30 | disposition home or self-care (01) ==
LOC: EMR 12:12
DX: N39.0 Urinary tract infection, site not specified (principal); N20.0 Calculus of kidney
CPT/HCPCS: 36415; 74176; 80053; 81001; 81003; 81025; 83690; 84703; 85025; 87086; 99284; J0696; J1885; J2270; J7040

== ENCOUNTER 2018-06-01 13:13 | Emergency (ER) | payer OTHER ==
[~2018-06-01] VITALS: Ht 162.6 cm; Wt 54.4 kg
[~2018-06-01 13:13] MED LIST changes: +TAMSULOSIN HCL0.4 MG ORAL
[2018-06-01 13:33] VITALS: BP 116/72
--- NOTE | 2018-06-01 13:48 | Emergency Room Report ---
History of Present Illness General Chief Complaint: Sore Throat Source: Patient Present Illness HPI 27-year-old female presents to the emergency department complaining of persistent cough 1 week she denies fever she reports primarily a dry cough however in the morning she is able to cough up moderate amount of mucus. Patient also reports nasal congestion and sore throat that she rates as 8 out of 10 in severity. Parts history of smoking she denies asthma or COPD she denies recent travel or ill contacts. She is not up-to-date with this year's flu vaccination. She denies neck pain or stiffness. Denies chest pain, palpitations or a sudden onset headache. Allergies: Coded Allergies: No Known Allergies (Unverified , 11/16/14) Patient History Past Medical History: see triage record Past Surgical History: none Pertinent Family History: none Social History: Reports: smoking Last Menstrual Period: 05/14 Now: No Reviewed Nursing Documentation: PMH: Agreed; PSxH: Agreed Nursing Documentation-PMH Past Medical History: No History, Except For Review of Systems All Other Systems: negative except mentioned in HPI Physical Exam Vital Signs Date Time Temp Pulse Resp B/P (MAP) Pulse Ox O2 Delivery O2 Flow Rate FiO2 06/01/18 13:15 98.6 94 20 116/72 98 Room Air Sp02 EP Interpretation: reviewed, normal General Appearance: no apparent distress, alert, GCS 15, non-toxic Head: normocephalic, atraumatic Eyes: bilateral eye normal inspection, bilateral eye PERRL ENT: hearing grossly normal, normal voice, TMs + canals normal, uvula midline, moist mucus membranes, nasal congestion, pharyngeal erythema Neck: full range of motion, no meningismus Respiratory: chest non-tender, lungs clear, speaking full sentences, wheezing - scant wheezes Cardiovascular #1: regular rate, rhythm Musculoskeletal: back normal, gait/station normal, normal range of motion, non- tender Neurologic: alert, oriented x3, responsive, motor strength/tone normal, sensory intact, speech normal, grossly normal Psychiatric: judgement/insight normal Skin: normal color, no rash, warm/dry, well hydrated Lymphatic: no adenopathy Medical Decision Making PA Attestation Dr. Morton is my supervising Physician whom patient management has been discussed with. Diagnostic Impression: Primary Impression: Bronchitis Additional Impression: Post-nasal drainage ER Course 27-year-old female presents to the emergency department complaining of persistent cough 1 week she denies fever she reports primarily a dry cough however in the morning she is able to cough up moderate amount of mucus. Patient also reports nasal congestion and sore throat that she rates as 8 out of 10 in severity. Parts history of smoking she denies asthma or COPD she denies recent travel or ill contacts. She is not up-to-date with this year's flu vaccination. She denies neck pain or stiffness. Denies chest pain, palpitations or a sudden onset headache. Ddx considered but are not limited to URI, pneumonia, PE, strep pharyngitis, meningitis. Vital signs: Pt.is afebrile VS are WNL H&PE are most consistent with bronchitis. pt. does not meet [facility] criteria. ORDERS: none required at this time, the diagnosis is clinical ED INTERVENTIONS: None required at this time. -Smoking cessation was d/w pt. - I reviewed this pt. CURES report and there are no active prescriptions for controlled substances in [place] at this time. DISCHARGE: At this time pt. is stable for d/c to home. Will provide printed patient care instructions, and any necessary prescriptions. Care plan and follow up instructions have been discussed with the patient prior to discharge. Last Vital Signs Date Time Temp Pulse Resp B/P (MAP) Pulse Ox O2 Delivery O2 Flow Rate FiO2 06/01/18 13:33 98.6 94 20 116/72 98 Room Air Disposition: HOME, SELF-CARE Condition: Stable Scripts Cetirizine Hcl/Pseudoephedrine (ZYRTEC-D TABLET) 1 Each Tab.er.12h 1 EACH ORAL Q12HR for 7 Days, #14 TAB Prov: Brittany Wright 06/01/18 Benzonatate* (TESSALON PERLE*) 100 Mg Capsule 100 MG ORAL THREE TIMES A DAY, #30 PERLE Prov: Brittany Wright 06/01/18 Albuterol Sulfate* (ALBUTEROL SULFATE MDI*) 8.5 Gm Hfa.aer.ad 2 PUFF INH Q4H, #1 INH 0 Refills Prov: Brittany Wright 06/01/18 Codeine/Promethazine Hcl* (PROMETHAZINE-CODEINE SYRUP*) 118 Ml Syrup 5 ML ORAL Q8HR PRN for For Cough, #120 ML 0 Refills Prov: Brittany Wright 06/01/18 Referrals: [facility],REFERRING (PCP) Departure Forms: Return to Work Return to Work Date: Jun 05, 2018 Work Restrictions: None Other Restrictions: May return Sooner if Symptoms have resolved. Return to Full Activity: Jun 05, 2018 Patient Instructions: Acute Bronchitis, [id number] Additional Instructions: Take medications as directed. Follow up with a Primary Care Provider in 3-5 days, even if your symptoms have resolved. --Please review list of primary care clinics, if you do not already have a primary care provider Return sooner to ED if new symptoms occur, or current symptoms become worse. Do not drink alcohol, drive, or operate heavy machinery while taking Cough Syrup as this may cause drowsiness. - Please note that this Emergency Department Report was dictated using [employer] Pharm[employer]operating room manager technology software, occasionally this can lead to erroneous entry secondary to interpretation by the dictation equipment. Brittany Wright Jun 01, 2018 13:48
[2018-06-01] MEDS ORDERED: PROMETHAZINE-C118 M1 ORAL (13:49)
[2018-06-01] MEDS ORDERED: ZYRTEC-D TABLE1 EACH ORAL (13:49)
[2018-06-01] MEDS ORDERED: ALBUTEROL SULF8.5 GM INH (13:49)
[2018-06-01] MEDS ORDERED: TESSALON PERLE100 MG ORAL (13:49)
[2018-06-01 14:00] VITALS: BP 116/72
== END 2018-06-01 14:01 | disposition home or self-care (01) ==
LOC: EMR 13:36
DX: J40 Bronchitis, not specified as acute or chronic (principal); R09.82 Postnasal drip
CPT/HCPCS: 99283

== ENCOUNTER 2019-05-06 14:22 | Emergency (ER) | payer OTHER ==
[~2019-05-06] VITALS: Ht 162.6 cm; Wt 54.4 kg
[~2019-05-06 14:22] MED LIST changes: +ALBUTEROL SULF8.5 GM INH; +PROMETHAZINE-C118 M1 ORAL; +TESSALON PERLE100 MG ORAL; +ZYRTEC-D TABLE1 EACH ORAL
[2019-05-06 14:40] VITALS: BP 116/68
--- NOTE | 2019-05-06 14:43 | NUR ---
ED Nurse Note: Patient walked in to ER, c/o sorethroat due to cough and colds. Per patient is started 2 weeks ago. She took NyQuil but she thought it wasnt working for her. No episodes of coughing noted at this time. Noted with runny nose and congestions. No dificulty breathing noted.
--- NOTE | 2019-05-06 14:56 | Emergency Room Report ---
History of Present Illness General Chief Complaint: Flu Like Symptoms Source: Patient Present Illness HPI 28 YO Female presents to the ED c/o 02/05 in severity sore throat, tonsillar swelling, and nasal congestion x 2 weeks. Patient reports fevers and chills she reports she has been taking many cxiy-abi-vigzwla medications such as DayQuil and NyQuil. She reports cough at night due to Patient reports her throat is her primary symptom she reports pain exacerbation upon swallowing she reports history of bronchitis in the past. Patient denies ill contacts or recent travel. Denies ear pain, lethargy, neck pain/stiffness, irritability, photophobia, dehydration, N/V/D. Denies Cp, Palpitations, LOC, AMS, seizures, paresthesias, or changes in Hearing or vision, no Sudden severe VELASCO. Denies hx of smoking, asthma or COPD. Allergies: Coded Allergies: No Known Allergies (Unverified , 11/16/14) Patient History Past Medical History: see triage record Past Surgical History: none Pertinent Family History: none Last Menstrual Period: 04/19/19 Now: No Immunizations: UTD Reviewed Nursing Documentation: PMH: Agreed; PSxH: Agreed Nursing Documentation-PMH Past Medical History: No Stated History Review of Systems All Other Systems: negative except mentioned in HPI Physical Exam Vital Signs Date Time Temp Pulse Resp B/P (MAP) Pulse Ox O2 Delivery O2 Flow Rate FiO2 05/06/19 14:40 99.9 106 16 116/68 (84) 99 Room Air Sp02 EP Interpretation: reviewed, normal General Appearance: no apparent distress, alert, GCS 15, non-toxic Head: normocephalic, atraumatic Eyes: bilateral eye normal inspection, bilateral eye PERRL ENT: hearing grossly normal, normal voice, TMs + canals normal, uvula midline, moist mucus membranes, nasal congestion, tonsillar swelling, pharyngeal erythema Neck: full range of motion, no meningismus, no bony tend Respiratory: chest non-tender, lungs clear, normal breath sounds, no respiratory distress, no accessory muscle use, no wheezing, speaking full sentences Cardiovascular #1: regular rate, rhythm, tachycardia Musculoskeletal: back normal, gait/station normal, normal range of motion, non- tender Neurologic: alert, oriented x3, responsive, motor strength/tone normal, sensory intact, speech normal, grossly normal Psychiatric: judgement/insight normal Skin: no rash, normal inspection Lymphatic: no adenopathy Medical Decision Making PA Attestation Dr. Hall is my supervising Physician whom patient management has been discussed with. Diagnostic Impression: Primary Impression: Pharyngitis, acute Qualified Codes: J02.0 - Streptococcal pharyngitis ER Course 28 YO Female presents to the ED c/o 02/05 in severity sore throat, tonsillar swelling, and nasal congestion x 2 weeks. Patient reports fevers and chills she reports she has been taking many eshy-khh-gieqjee medications such as DayQuil and NyQuil. Patient reports her throat is her primary symptom she reports pain exacerbation upon swallowing she reports history of bronchitis in the past. Patient denies ill contacts or recent travel. Denies ear pain, lethargy, neck pain/stiffness, irritability, photophobia, dehydration, N/V/D. Denies Cp, Palpitations, LOC, AMS, seizures, paresthesias, or changes in Hearing or vision, no Sudden severe VELASCO. Denies hx of smoking, asthma or COPD. Ddx considered but are not limited to: pharyngitis, strep, PPAP COORDINATOR, ludwigs angina, URI Vital signs: Pt. Tachycardic, remaining vs are WNL, pt. is afebrile H&PE are most consistent with: pharyngitis presumed strep. ORDERS: None required at this time as the diagnosis is clinical ED INTERVENTIONS: none required at this time. DISCHARGE: At this time pt. is stable for d/c to home. Will provide printed patient care instructions, and any necessary prescriptions. Care plan and follow up instructions have been discussed with the patient prior to discharge. Last Vital Signs Date Time Temp Pulse Resp B/P (MAP) Pulse Ox O2 Delivery O2 Flow Rate FiO2 05/06/19 14:40 99.9 106 16 116/68 (84) 99 Room Air Disposition: HOME, SELF-CARE Condition: Stable Departure Forms: Return to Work Return to Work Date: May 10, 2019 Work Restrictions: None Other Restrictions: May return Sooner if Symptoms have resolved. Return to Full Activity: May 10, 2019 Patient Instructions: Pharyngitis, Tacy-[id number]-[id number], Upper Respiratory Infection, Adult, [id number] Additional Instructions: Take medications as directed. Follow up with a Primary Care Provider in 3-5 days, even if your symptoms have resolved. --Please review list of primary care clinics, if you do not already have a primary care provider Return sooner to ED if new symptoms occur, or current symptoms become worse. Do not drink alcohol, drive, or operate heavy machinery while taking Cough Syrup as this may cause drowsiness. - Please note that this Emergency Department Report was dictated using [employer] support engineer technology software, occasionally this can lead to erroneous entry secondary to interpretation by the dictation equipment. Brittany Wright May 06, 2019 14:56
[2019-05-06] MEDS ORDERED: LIDOCAINE VISC100 ML ORAL (14:59)
[2019-05-06] MEDS ORDERED: PROMETHAZINE-C118 M1 ORAL (14:59)
[2019-05-06] MEDS ORDERED: TYLENOL EXTRA500 MG ORAL (14:59)
[2019-05-06] MEDS ORDERED: AUGMENTIN 875-1 EAC1 ORAL (14:59)
[2019-05-06 15:01] VITALS: BP 122/68
--- NOTE | 2019-05-06 15:10 | NUR ---
ER DISCHARGE NOTE: Patient is cleared to be discharged per ERMD, pt is aox4, on room air, with stable vital signs. pt was given dc and prescription instructions, pt was able to verbalize understanding, pt id band removed. pt is able to ambulate with steady gait. pt took all belongings.
== END 2019-05-06 15:10 | disposition home or self-care (01) ==
LOC: EMR 14:55
DX: J02.0 Streptococcal pharyngitis (principal)
CPT/HCPCS: 99282

== ENCOUNTER 2019-08-03 10:22 | Emergency (ER) | payer OTHER ==
[~2019-08-03] VITALS: Ht 177.8 cm; Wt 53.1 kg
[~2019-08-03 10:22] MED LIST changes: +AUGMENTIN 875-1 EAC1 ORAL; +LIDOCAINE VISC100 ML ORAL; +TYLENOL EXTRA500 MG ORAL
[2019-08-03 10:35] VITALS: BP 122/80
--- NOTE | 2019-08-03 10:35 | NUR ---
ED Nurse Note: Patient arrived to ED from home c/o sore throat and abdominal pain x 1 week. Pain is 7/10 aching pain. Patient AxO x 4, VSS. No s/s of acute distress. Bed in lowest position.
--- NOTE | 2019-08-03 10:45 | NUR ---
ED Nurse Note: PT WALKED IN DUE TO LOWER ABD PAIN X 1 WEEK. DENIES DYSURIA, FEVER OR CHILLS. AAO X4, AMBULATORY WITH UNLABORED BREATHING.
[2019-08-03] MEDS ORDERED: Acetaminophen 500mg (ES) tab ORAL ONE (11:00)
[2019-08-03 11:18] LABS: APPEARANCE,URINE CLEAR; BILIRUBIN, URINE NEGATIVE (NEGATIVE); COLOR,URINE PALE YELLOW; GLUCOSE, URINE (UA) NEGATIVE (NEGATIVE); KETONES,URINE NEGATIVE (NEGATIVE); LEUKOCYTE ESTERASE ,URINE NEGATIVE (NEGATIVE); NITRITE,URINE NEGATIVE (NEGATIVE); PH,URINE 7 (4.5-8.0); PROTEIN,URINE NEGATIVE (NEGATIVE); UROBILINOGEN,URINE NORMAL MG/DL (0.0-1.0)
--- NOTE | 2019-08-03 11:29 | NUR ---
ED Nurse Note: Dr. Bragg speaking with patient about having and ultrasound.
[2019-08-03] MEDS ORDERED: TYLENOL EXTRA500 MG ORAL (13:55)
[2019-08-03] MEDS ORDERED: AMOXICILLIN500 MG ORAL (14:00)
[2019-08-03 14:03] VITALS: BP 120/80
--- NOTE | 2019-08-03 14:06 | NUR ---
discharged home with instruction and rx follow up with pmd
--- NOTE | 2019-08-03 14:57 | Diagnostic Imaging Report ---
Indication: Pelvic pain, negative test Technique: Transabdominal and transvaginal images of the pelvis. Doppler interrogation of the ovaries Comparison: none Findings: Uterus measures 7.9 cm length by 4.1 cm AP. The endometrium measures 8 mm thick. No myometrial abnormality. The right ovary measures 3.2 cm length. The left ovary measures 2.7 cm in length. There are questionable bilateral hydrosalpinges. No ovarian or adnexal mass. There is trace free cul-de-sac fluid. Impression: Questionable bilateral hydrosalpinges Trace free cul-de-sac fluid, most likely physiologic No other significant abnormality This agrees with the preliminary interpretation provided overnight by [facility].
--- NOTE | 2019-08-03 15:34 | Emergency Room Report ---
History of Present Illness General Chief Complaint: Abdominal Pain Source: Patient Present Illness HPI 29-year-old female presents ED for evaluation. Complaining of suprapubic pain x1 week. Dull, pressure-like, worse with urination. 5 out of 10. Nonradiating. denies vaginal bleeding or discharge. Also complaining of sore throat for 2 days. Denies cough. Denies fevers or chills. No other aggravating relieving factors. Denies any other associated symptoms Allergies: Coded Allergies: No Known Allergies (Unverified , 11/16/14) Patient History Past Medical History: none Past Surgical History: none Pertinent Family History: none Social History: Denies: smoking, alcohol use, drug use Last Menstrual Period: 07/23/2019 Now: No Immunizations: UTD Reviewed Nursing Documentation: PMH: Agreed; PSxH: Agreed Nursing Documentation-PMH Past Medical History: No Stated History Review of Systems All Other Systems: negative except mentioned in HPI Physical Exam Vital Signs Date Time Temp Pulse Resp B/P (MAP) Pulse Ox O2 Delivery O2 Flow Rate FiO2 08/03/19 10:24 97.5 105 16 122/80 (94) 100 Room Air Sp02 EP Interpretation: reviewed, normal General Appearance: no apparent distress, alert, GCS 15, non-toxic Head: normocephalic, atraumatic Eyes: bilateral eye normal inspection, bilateral eye PERRL ENT: hearing grossly normal, no angioedema, normal voice, pharyngeal erythema Neck: full range of motion, supple/symm/no masses Respiratory: chest non-tender, lungs clear, normal breath sounds, speaking full sentences Cardiovascular #1: regular rate, rhythm, no edema Cardiovascular #2: 2+ carotid (R), 2+ carotid (L), 2+ radial (R), 2+ radial (L) , 2+ dorsalis pedis (R), 2+ dorsalis pedis (L) Gastrointestinal: normal bowel sounds, soft, non-distended, no guarding, no rebound, tenderness - suprapubic Rectal: deferred Genitourinary: normal inspection, no CVA tenderness Musculoskeletal: back normal, normal range of motion, gait/station normal, non- tender Neurologic: alert, motor strength/tone normal, oriented x3, sensory intact, responsive, speech normal Psychiatric: judgement/insight normal, memory normal, mood/affect normal, no suicidal/homicidal ideation Reflexes: 3+ bicep (R), 3+ bicep (L), 3+ tricep (R), 3+ tricep (L), 3+ knee (R) , 3+ knee (L) Skin: no rash Lymphatic: no adenopathy Medical Decision Making Diagnostic Impression: Primary Impression: Pelvic pain Additional Impressions: Hydrosalpinx Pharyngitis Qualified Codes: J02.9 - Acute pharyngitis, unspecified ER Course Hospital Course 29-year-old female presents with pelvic pain, dysuria, sore throat Differential diagnoses include: pharyngitis, ectopic , ovarian torsion/ cyst, UTI Clinical course Patient placed on stretcher in ED. After initial history and physical I ordered UA, tylenol, pelvic US UA negative. negative. Pelvic ultrasound- hydrosaplinx Patient has pharyngeal erythema. Will discharge with antibiotics. Discussed ultrasound findings with patient. Discussed with [facility] EXPERIENCE COORDINATOR. Recommends close follow-up. Safe for discharge. No acute intervention. Diagnosis - hydrosalpinx, pharyngitis Stable and discharged to home with Rx Tylenol, amoxicillin. Followup with PMD/ [facility] EXPERIENCE COORDINATOR. Return to ED if symptoms recur or worsen Labs Test 08/03/19 10:40 Urine Color Pale yellow Urine Appearance Clear Urine pH 7 (4.5-8.0) Urine Specific [place] 1.010 (1.005-1.035) Urine Protein Negative (NEGATIVE) Urine Glucose (UA) Negative (NEGATIVE) Urine Ketones Negative (NEGATIVE) Urine Blood Negative (NEGATIVE) Urine Nitrite Negative (NEGATIVE) Urine Bilirubin Negative (NEGATIVE) Urine Urobilinogen Normal MG/DL (0.0-1.0) Urine Leukocyte Esterase Negative (NEGATIVE) Urine HCG, Qualitative Negative (NEGATIVE) CT/MRI/US Diagnostic Results CT/MRI/US Diagnostic Results : Imaging Test Ordered: Pelvic US Impression Comparison: none Findings: Uterus measures 7.9 cm length by 4.1 cm AP. The endometrium measures 8 mm thick. No myometrial abnormality. The right ovary measures 3.2 cm length. The left ovary measures 2.7 cm in length. There are questionable bilateral hydrosalpinges. No ovarian or adnexal mass. There is trace free cul-de-sac fluid. Impression: Questionable bilateral hydrosalpinges Trace free cul-de-sac fluid, most likely physiologic No other significant abnormality This agrees with the preliminary interpretation provided overnight by [facility] teleradiology service. Last Vital Signs Date Time Temp Pulse Resp B/P (MAP) Pulse Ox O2 Delivery O2 Flow Rate FiO2 08/03/19 14:03 98.0 78 15 120/80 100 Room Air Status: improved Disposition: HOME, SELF-CARE Condition: Stable Scripts Amoxicillin* (AMOXIL*) 500 Mg Capsule 500 MG ORAL THREE TIMES A DAY, #21 CAP Prov: Noman Bragg MD 08/03/19 Acetaminophen* (TYLENOL EXTRA STRENGTH*) 500 Mg Tablet 500 MG ORAL Q8H PRN for Prn Headache/Temp > 101, #30 TAB 0 Refills Prov: Noman Bragg MD 08/03/19 Referrals: NON PHYSICIAN (PCP) Ivelisse Aguilar [facility]. [facility] Patient Instructions: Pelvic Pain, Female, [id number] Noman Bragg MD Aug 03, 2019 15:34
== END 2019-08-03 14:07 | disposition home or self-care (01) ==
LOC: EMR 10:54
DX: R10.2 Pelvic and perineal pain (principal); N70.11 Chronic salpingitis; J02.9 Acute pharyngitis, unspecified
CPT/HCPCS: 76830; 76856; 81003; 81025; Z7502; 99284

== ENCOUNTER 2020-03-17 12:03 | Emergency (ER) | payer OTHER ==
[~2020-03-17] VITALS: Ht 162.6 cm; Wt 52.2 kg
[~2020-03-17 12:03] MED LIST changes: +AMOXICILLIN500 MG ORAL
--- NOTE | 2020-03-17 12:12 | NUR ---
ED Nurse Note: PT walked in to ed for C/O sore throat with feeling of having phleghm in throat all the time x 3 weeks. pt has been taking tramadol for sore throat
[2020-03-17 12:13] VITALS: BP 124/79
[2020-03-17] MEDS ORDERED: CLARITIN-D 121 EAC1 ORAL (12:28)
[2020-03-17] MEDS ORDERED: Lidocaine 1% MPF 10mg/ml 5ml INJ ONE (12:30)
[2020-03-17] MEDS ORDERED: Azithromycin 250mg tab ORAL ONE (12:30)
--- NOTE | 2020-03-17 12:37 | Emergency Room Report ---
History of Present Illness General Chief Complaint: Sore Throat Source: Patient Present Illness HPI Disclaimer: Please note that this report is being documented using [employer] technology. This can lead to erroneous entry secondary to incorrect interpretation by the dictating instrument. HPI: 29-year-old female presents for throat discomfort. Symptoms have been intermittent though present for the past 3 weeks. Denies fever, chills, submandibular swelling, headaches. Denies stridor or difficulty breathing. Is able to eat and drink at baseline and tolerating secretions without difficulty. Denies vomiting, chest pain, shortness of breath. She reports intermittent nasal congestion as well. No history of seasonal allergies. No recent travel. Denies change in sense of taste or smell. Of note, patient states she had a similar situation after she contracted chlamydia pharyngitis. States she was successfully treated for this but is unsure whether or not her sexual partner has been treated. Reports recent oral sex and is concerned over re-exposure. Denies any pelvic pain, discharge, dysuria, hematuria, vaginal bleeding or vaginal discharge. PMH: Reviewed PSH: Reviewed Allergies: Denies Social Hx: Former smoker Allergies: Coded Allergies: No Known Allergies (Unverified , 11/16/14) COVID-19 Screening Contact w/high risk pt: No Experienced COVID-19 symptoms?: Yes COVID-19 Testing performed GRAIN ROASTER: No Patient History Last Menstrual Period: 02/16/20 Now: No Nursing Documentation-PMH Past Medical History: No History, Except For Review of Systems All Other Systems: negative except mentioned in HPI Physical Exam Vital Signs Date Time Temp Pulse Resp B/P (MAP) Pulse Ox O2 Delivery O2 Flow Rate FiO2 03/17/20 12:06 98.8 78 17 124/79 (94) 98 General: Awake and alert, no acute distress HEENT: NC/AT. EOMI. uvula midline. Tonsils 1+ nonobstructing. No pharyngeal edema, erythema, purulence noted. No submandibular lymphadenopathy. No skin breakdown other than mucosal membranes, no vesicles, no plaques or patches. No stridor. Tolerating secretions. Normal phonation Resp: Normal work of breathing Skin: Intact. No abrasions, laceration or rash over the exposed skin MSK: Normal tone and bulk. Moving all extremities. No obvious deformity. Neuro: Awake and alert. Mentating appropriately Medical Decision Making Diagnostic Impression: Primary Impression: Sore throat ER Course 39-year-old female presents for evaluation 3 weeks intermittent sore/dry throat. Differential includes but not limited to pharyngitis, viral syndrome, seasonal allergies, STI exposure. I see no evidence of acute pharyngitis that would require antibiotics at this time. Centor score low. She is concerned over STI exposure and will be treated with ceftriaxone azithromycin. I encouraged her to have STD treatment for her and her sexual partner as well as using barrier contraception. Will be discharged to follow-up on an outpatient basis. Discussed reasons to return to the ED. She understands and agrees with this treatment plan. Last Vital Signs Date Time Temp Pulse Resp B/P (MAP) Pulse Ox O2 Delivery O2 Flow Rate FiO2 03/17/20 12:13 98.8 17 124/79 95 03/17/20 12:06 78 Disposition: HOME, SELF-CARE Condition: Stable Scripts Loratadine/Pseudoephedrine (CLARITIN-D 12 HOUR TABLET) 1 Each Tab.er.12h 1 TAB ORAL EVERY 12 HOURS for 5 Days, #10 TAB Prov: Eyal Hall MD 03/17/20 Referrals: JUS HOROWITZ (PCP) Patient Instructions: Sore Throat Additional Instructions: Please follow-up with one of the clinics listed here in your discharge paperwork for STD testing including HIV, hepatitis, herpes virus, syphilis, chlamydia, gonorrhea among others. Refrain from sexual contact until you obtain these results. Notify all sexual partners of any positive results. Return to the emergency department new or worsening symptoms. Please follow-up with your primary care doctor in the next 1 to 3 days to discuss this emergency department visit and for reevaluation. If you have any new or worsening symptoms please return to the emergency department for reevaluation. Please note that this report is being documented using [email or web address] technology. This can lead to erroneous entry secondary to incorrect interpretation by the dictating instrument. Eyal Hall MD Mar 17, 2020 12:37
--- NOTE | 2020-03-17 12:45 | NUR ---
ED Nurse Note: Pt cleared by health care Provider for discharge. DC instructions/prescription was given and explained to pt and verbalized understanding of teachings. All medical deviecs such as ID band removed. Pt is AAO x4, ambulatory and left with all personal belongings.
[2020-03-17 12:46] VITALS: BP 125/78
== END 2020-03-17 12:45 | disposition home or self-care (01) ==
LOC: EMR 12:20
DX: R07.0 Pain in throat (principal); Z87.891 Personal history of nicotine dependence
CPT/HCPCS: 96372; 96374; J0696; Q0144; Z7502; 99284